=== PATIENT | female | born 1990 | race Caucasian/White ===

== ENCOUNTER → 2022-03-17 14:48 | Outpatient (CLI) | payer OTHER, SELFPAY ==
--- NOTE | 2022-03-17 14:55 | DI.US.S_ITS ---
PROCEDURE: US OB >= 14 WEEKS FETUS INDICATIONS: 20 WEEK ANATOMY SCAN OUTSIDE/PRIOR DATING DATA: Last menstrual period (LMP): 10/26/2021. LMP-based estimated date of delivery (NISH): 08/02/2022. First dating scan (date and location): 03/17/2022. Estimated date of delivery (NISH) from first dating scan: 08/04/2022 TECHNIQUE: Real-time scanning was performed of the fetus, with image documentation and biometric measurements. COMPARISON: None. General: A single living intrauterine gestation is present. Presentation: Cephalic. Placenta: Placental position is anterior , without previa. Amniotic fluid index: 11.4 cm, normal range is 5-24 cm. Single deepest vertical pocket is 3.3 cm. heart rate: 140 beats per minute. Maternal cervical canal: 2.9 cm long. Normal lower limit is 2.5 cm. 1.6 x 1.7 uterine fibroid noted biometrics: Biparietal diameter: 4.5 cm, 19 week 5 day Head circumference: 16.8 cm, 19 week 3 day Abdominal circumference: 14 cm, 19 week 2 day Femur length: 3.6 cm, 21 week 2 day Clinically estimated gestational age: 20 week 2 day Composite gestational age from present scan: 20 week 0 day Estimated weight and percentile: 334 g, 36th percentile Anatomic survey: Neuro: Ventricles are non-dilated at less than 10 mm. Cisterna magna is normal at 3-11 mm. Cerebellum is normal in size and morphology. Nuchal skin fold: Normal at less than 6 mm between 14-21 weeks gestational age. Face: Not well seen Spine: No evidence for spina bifida. Heart: Not well seen Diaphragm: Not well seen Stomach: Left-sided stomach is present. Kidneys: Not well seen Cord: Three-vessel cord visualized. Cord insertion not well seen Bladder: Normal in size. Extremities: Not well seen IMPRESSION: Single live intrauterine consistent with a 20 week 0 day gestation. anatomy is not well visualized due to maternal body habitus and position. Consider follow-up. Approved by: Merritt Lopez M.D. on 03/17/2022 at 17:38
== END ==
PROVIDERS: PCP Registered Nurse; Referring Provider Nurse Practitioner Obstetrics & Gynecology; Visit Provider Nurse Practitioner Obstetrics & Gynecology
DX: Z34.92 Encounter for supervision of normal pregnancy, unspecified, second trimester (principal); Z3A.20 20 weeks gestation of pregnancy
CPT/HCPCS: 76811

== ENCOUNTER → 2022-03-30 07:36 | Outpatient (CLI) | payer OTHER, SELFPAY ==
--- NOTE | 2022-03-30 | DI.US.S_ITS ---
PROCEDURE: US OB FOLLOW UP INDICATIONS: RE-EVALUATE OUTSIDE/PRIOR DATING DATA: Last menstrual period (LMP): 10/26/2021. LMP-based estimated date of delivery (NISH): 08/02/2022. First dating scan (date and location): 03/17/2022. Estimated date of delivery (NISH) from first dating scan: 08/04/2022. TECHNIQUE: Real-time scanning was performed of the fetus, with image documentation. Endovaginal scanning: Not performed COMPARISON: [facility], OB >= 14 WEEKS FETUS, 03/17/2022, 15:07. FINDINGS: A single living intrauterine gestation is present. Presentation: Vertex. Placenta: Placental position is anterior, without previa. Amniotic fluid index: 11.9 cm, normal range is 5-24 cm. Single deepest vertical pocket is 4.2 cm. heart rate: 133 beats per minute. Maternal cervical canal: 3.3 cm long. Normal lower limit is 2.5 cm. estimated gestational age: 21 weeks 6 days anatomy: Placental cord insertion, face, nose/lips, profile, heart, diaphragm, kidneys, lower extremities and feet are visualized and appear within normal limits. No definite abnormality of the upper extremities identified on the prior exam. IMPRESSION: 1. Single living intrauterine . 2. structures previously not well visualized are identified on this follow-up exam and appear within normal limits. This completes the anatomy survey. No anomalies detected at this time. Dictated by: Keith Carrillo M.D. on 03/30/2022 at 9:33 Approved by: Keith Carrillo M.D. on 03/30/2022 at 10:42
== END ==
PROVIDERS: PCP Registered Nurse; Referring Provider Nurse Practitioner Obstetrics & Gynecology; Visit Provider Nurse Practitioner Obstetrics & Gynecology
DX: Z36.2 Encounter for other antenatal screening follow-up (principal); Z3A.21 21 weeks gestation of pregnancy
CPT/HCPCS: 76816

== ENCOUNTER 2022-08-14 07:32 | Inpatient (IN) | payer OTHER, SELFPAY ==
[2022-08-14 07:55] VITALS: BP 110/70
[2022-08-14 10:06] LABS: Add Manual Diff / Slide Review NO; Basophils Absolute Auto 100 /uL (0-100); Basophils Percent Auto 0.5 % (0-2); Eosinophils Absolute Auto 100 /uL (0-450); Eosinophils Percent Auto 0.5 % (2-4); Hematocrit 33.8 % (36-46); Hemoglobin 11.4 g/dL (12.0-16.0); Lymphocytes Absolute Auto 1200 /uL (1100-4500); Lymphocytes Percent Auto 11.2 % (25-40); Mean Corpuscular HGB Conc 33.9 % (30-36); Mean Corpuscular Hemoglobin 29.3 PG (26-34); Mean Corpuscular Volume 86.5 fL (80-100); Monocytes Absolute Auto 700 /uL (0-900); Monocytes Percent Auto 6.9 % (3-14); Neutrophils Absolute Auto 8700 /uL (1500-7000); Neutrophils Percent Auto 80.9 % (50-75); Platelet Count 227 X10^3/uL (150-400); Red Cell Distribution Width 14.5 % (11.6-14.8); White Blood Cell Count 10.7 X10^3/uL (4.5-11.0)
[2022-08-14] MEDS: miSOPROStoL 100 MCG TABLET 50 MCG SL ×2 (10:26→14:29)
--- NOTE | 2022-08-14 13:32 | PM.OBHP.1 ---
OB HPI Date/Time Date of admission: 08/14/22 Date Patient Seen: 08/14/22 Time Patient Seen: 08:00 History of Present Condition Chief complaint: INDUCTION : 1 Para: 0 Estimated Date of Delivery: 08/02/22 Estimated Gestational Age (weeks): 41w5d Narrative: Lisa Ramirez is a 32 year old female at 41w5d here for a post-term induction. Has Olivo balloon still in place that was inserted in outpatient clinic last night 08/13/2022 at 1730. Feeling occasional, [id number] lower abdominal contractions. +FM. Denies LOF. Indications Indication for induction OB: post dates History of Present care: good care, initiated at week # (11) and number of visits (11) Dating criteria: LMP confirmed by 1st trimester US Ultrasounds: normal mid trimester US Obstetrical complications: none Medical complications: none Preadmission Labs Blood type: B (+) positive HCT: 34 Cell-free DNA: Declined Narrative: 2-hr GTT: 83, 136, 121 Prior (ies) History: none Evaluation Evaluation Baseline heart rate: 135 Variability: Moderate (11-25) monitor accelerations: Present Monitor Decelerations: Absent Uterine Contraction Intensity: Mild Status: Category l Dilation (cm): 2.5 Effacement (%): 70 Dilation: 1-2 cm Effacement: 60-70% station: -2 Position of cervix: posterior Consistency: firm Forte score: 4 PFSH Medical History (Updated 08/14/22 @ 19:13 by Ashly Davis CNM, IVETT) BMI 39.0-39.9,adult Supervision of normal in third trimester Family History (Updated 08/14/22 @ 13:57 by Ashly Davis CNM, IVETT) Father Hypertension Brother Diabetes mellitus Sister Thyroid disease Social History Smoking Status: Never smoker Meds Home Medications and Allergies Allergies Allergy/AdvReac Type Severity Reaction Status Date / Time Penicillins Allergy hives/vomit Verified 08/14/22 08:37 Review of Systems Review of Systems Narrative: All pertinent ROS reviewed and negative. See HPI. Constitutional Constitutional: Reports system reviewed and no additional complaints, except as documented OB Exam Vital signs Blood Pressure: 110/70 Pulse Rate: 104 Respiratory Rate: 14 Temperature: 96.1 F HENMT Head: normal to inspection Eyes General: appearance normal, both eyes and all related structures Resp Effort & Inspection: normal respiratory effort Auscultation: clear to auscultation bilaterally Cardio Rate: regular rate Rhythm: regular rhythm Heart Sounds: S1 normal and S2 normal Extremities Lower extremity: Yes normal to inspection DTR's: Rt Patellar: 2+ and Lt Patellar: 2+ GI Inspection: normal to inspection Palpation: Yes soft and Yes other (Gravid) External Female Exam: Yes normal external appearance Presentation: vertex Estimated Weight (lbs): 8 Amniotic Fluid: no fluid Objective Labs 08/14/22 08:10 Labs: Laboratory Results - last 24 hr 08/14/22 08/14/22 08:10 08:10 WBC 10.7 RBC 3.90 L Hgb 11.4 L Hct 33.8 L MCV 86.5 MCH 29.3 MCHC 33.9 RDW 14.5 Plt Count 227 Neut % (Auto) 80.9 H Lymph % (Auto) 11.2 L [place] % (Auto) 6.9 Eos % (Auto) 0.5 L Baso % (Auto) 0.5 Neut # (Auto) 8700 H Lymph # (Auto) 1200 [place] # (Auto) 700 Eos # (Auto) 100 Baso # (Auto) 100 Blood Type B Positive Antibody Screen Negative Assessment and Plan Assessment and Plan Assessment and Plan narrative: ASSESSMENT: 32 yo at 41w5d Early labor Intact membranes Pre- BMI 39 Cervical ripening with Olivo balloon Forte 4 FHR Cat 1 PLAN: Admit for cervical ripening and labor induction Insert IV Draw labs: ABO/Rh, CBC Olivo balloon removed with traction Give misoprostol 50 mg buccally every 4 hours x 24 hours Continuous EFM Reassess in 5-6 hours after 2nd dose of misoprostol Time Spent with Patient Total time spent with greater than 50% in coordination of care (as documented) at patient's floor/unit and/or counseling patient:: 15-24 minutes
[2022-08-14 14:10] VITALS: BP 110/70; PULSE 104; RESP 14; TEMP 35.6
--- NOTE | 2022-08-14 14:11 | PM.OBPNLAB ---
Date/Time Date Patient Seen: 08/14/22 Time Patient Seen: 13:30 Pain Control Pain control: tolerating well Comments: Lisa doing well so far. Contractions have increased in frequency and strength but still not consistent. No LOF. Baby still moving well. Has been out of bed trying different positions. Hoping to take a nap soon. VS: BP 136/84; HR 96; Temp 35.6C Pelvic Exam Dilation (cm): 2.5 Effacement (%): 70 station: -2 Amniotic membrane status: Intact Contractions Date/Time contractions began: early labor started with mcmanus bulb insertion 1800 08/14/22. Active labor not yet started. Contractions on admission: irregular Monitor mode: External Contraction pattern: Irregular (every 3-7 minutes then long periods without contractions) Contraction intensity: Mild Status status: Category l Heart Rate Baseline: 135 Monitor Accelerations: Present Monitor Decelerations: Absent Monitor Variability: Moderate Assessment and Plan Assessment: induction ongoing Comments: ASSESSMENT: 32 yo at 41w5d Early labor Cervical ripening with misoprostol Intact membranes Pre- BMI 39 FHR Cat 1 PLAN: Discussed cervical exam to determine if next misoprostol would be needed versus starting pitocin and r/b/a of each. Lisa declines exam at this time. Give 2nd misoprsotol dose when due. Reassess in 3-4 hours or sooner as needed.
--- NOTE | 2022-08-14 19:17 | PM.OBPNLAB ---
Date/Time Date Patient Seen: 08/14/22 Time Patient Seen: 19:00 Pain Control Pain control: tolerating well Comments: History of painful menstrual cramps; these contractions remind her of those Pelvic Exam Dilation (cm): 4 Effacement (%): 80 station: -1 Amniotic membrane status: Intact Comments: Forte score =8 Contractions Date/Time contractions began: Still in early labor Monitor mode: External Contraction pattern: Irregular (every 3-7 minutes then long periods without contractions) Contraction intensity: Mild Status status: Category l Heart Rate Baseline: 140 Monitor Accelerations: Present Monitor Decelerations: Variable (x1) Monitor Variability: Moderate Assessment and Plan Assessment: induction ongoing Comments: Assessment: at 40w5d GBS neg Rh positive FHR Cat 1 Induction for post dates Give 25 mcg misoprostol buccally Start pitocin in 2 hours Consider AROM tonight Anticipate
[2022-08-14] MEDS: miSOPROStoL 100 MCG TABLET 25 MCG SL (19:46)
[2022-08-14] MEDS: LACTATED RINGERS 1,000 ML 100 ML IV (22:00)
[2022-08-14] MEDS: OXYTOCIN PREMIX 30 UNIT/500 ML PLAST..BAG IV (22:42)
--- NOTE | 2022-08-15 00:20 | PM.OBPNLAB ---
Date/Time Date Patient Seen: 08/15/22 Time Patient Seen: 00:20 Pain Control Pain control: tolerating well Comments: Lisa was sleeping well, had a couple hours of sleep. Contractions were initially more intense shortly (11/28 for pain) after Pitocin was started. Now the contractions have slowed and she hasn't been feeling them too much. Would prefer to be checked in a couple hours. Per RN, Pitocin started about 1.5 hours ago at around 2245 on 08/14/22. VS: BP 121/78; HR 82; Temp 98.1F; O2 99% Pelvic Exam Dilation (cm): 4 Effacement (%): 80 station: -1 Amniotic membrane status: Intact Comments: previous exam Contractions Date/Time contractions began: Still early labor Monitor mode: External Contraction pattern: Regular (every 1-4 minutes ) Contraction intensity: Mild (was moderate/strong earlier) Status status: Category l Heart Rate Baseline: 135 Monitor Accelerations: Present Monitor Decelerations: Absent Monitor Variability: Moderate Assessment and Plan Assessment: induction ongoing Comments: ASSESSMENT: 32 yo at 41w5d Post-dates induction Early labor Pitocin at 4 mE/L Membranes intact GBS negative FHR Cat 1 PLAN: Discussed cervical exam now versus in 2-3 hours. Continue monitoring then reassess in 2-3 hours per Lisa's preference. Anticipate .
--- NOTE | 2022-08-15 04:28 | PM.OBPNLAB ---
Date/Time Date Patient Seen: 08/15/22 Time Patient Seen: 04:10 Pain Control Pain control: tolerating well Comments: Lisa has been out of bed on birthing ball and walking around in room. She says that the contraction pain has definitely increased and can no longer sleep. Is wondering about pain management options other than epidural. After exam, is open to AROM but wants to try to take warm shower or bath before to see if that helps. VS: BP 133/77; HR 87; RR 18; Temp 97.7F; 98% Pelvic Exam Dilation (cm): 5 Effacement (%): 80 station: -1 Amniotic membrane status: Intact Contractions Date/Time contractions began: Early labor but with intensifying contractions starting at 0300 Monitor mode: External Pitocin rate (mU/min): 14 Contraction pattern: Regular (every 2-3 minutes ) Contraction intensity: Mild (was moderate/strong earlier) Status status: Category l Heart Rate Baseline: 140 Monitor Accelerations: Present Monitor Decelerations: Absent Monitor Variability: Moderate Assessment and Plan Assessment: induction ongoing Comments: ASSESSMENT: 32 yo at 41w5d Post-dates induction Early labor Pitocin at 14 mE/L Membranes intact FHR Cat 1 PLAN: Discussed pain management techniques before and after AROM. Plan to try shower and tub then consider AROM when ready. Reassess PRN.
--- NOTE | 2022-08-15 06:41 | PM.OBPNLAB ---
Date/Time Date Patient Seen: 08/15/22 Time Patient Seen: 06:00 Pain Control Pain control: tolerating well Comments: Lisa now out of shower. Says that contractions were feeling minimal near the end of the shower and are now starting to pick back up. She is wondering if she should try nitrous for pain management now. Per RN, Pitocin was turned off while in the shower. Will plan to restart at 2 mU/min. VS: BP 133/65; HR 102; O2 97%; RR 16 Pelvic Exam Dilation (cm): 5 Effacement (%): 80 station: -1 Amniotic membrane status: Intact Comments: Previous exam - no indication to recheck Contractions Date/Time contractions began: Early labor still Monitor mode: External Pitocin rate (mU/min): 0 Contraction pattern: Irregular (every 2-6 minutes ) Contraction intensity: Mild (was moderate/strong earlier) Status status: Category l Heart Rate Baseline: 135 Monitor Accelerations: Present Monitor Decelerations: Absent Monitor Variability: Moderate Assessment and Plan Assessment: induction ongoing Comments: ASSESSMENT: 32 yo at 41w6d Post-dates induction Early labor Pitocin off while in shower due to error Membranes intact FHR Cat 1 PLAN: Set up nitrous oxide. Lisa to get into bath when desired. Recommend AROM but Lisa not interested at this time. Encouraged to nap if able. Restart Pitocin at 2 mU/min. Reassess PRN.
--- NOTE | 2022-08-15 09:51 | PM.OBPNLAB ---
Date/Time Date Patient Seen: 08/15/22 Time Patient Seen: 09:52 Pain Control Pain control: other (see below) Comments: Lisa recently got out of tub, which was initially helpful for pain, but has noticed definite increase in contraction strength since last Pitocin increase. Now leaning over bed with partner Alfred applying counter-pressure to her back with some relief. Slightly discouraged about progress after cervical exam. Would like an epidural now. Getting into shower now while waiting for anesthesiologist. Pelvic Exam Dilation (cm): 5.5 Effacement (%): 80 station: -1 Amniotic membrane status: Intact Contractions Date/Time contractions began: Early active labor starting at about 0945 today. Monitor mode: External Pitocin rate (mU/min): 12 Contraction pattern: Regular (every 2-3 minutes ) Contraction intensity: Strong/Firm Status status: Category l Heart Rate Baseline: 135 Monitor Accelerations: Present Monitor Decelerations: Absent Monitor Variability: Moderate Assessment and Plan Assessment: induction ongoing Comments: ASSESSMENT: 32 yo at 41w6d Post-dates induction Pitocin at 12 Membranes intact GBS negative FHR Cat 1 PLAN: Keep Pitocin at current dose for now to not increase pain level further. Epidural requested. Will re-evaluate for AROM after epidural.
--- NOTE | 2022-08-15 12:18 | PM.OBPNLAB ---
Date/Time Date Patient Seen: 08/15/22 Time Patient Seen: 11:45 Pain Control Pain control: tolerating well Comments: Lisa is much more comfortable now with epidural. Would like to rest for an hour or so before being checked again. PIV was dislodged during position changes right before epidural. Difficult IV start. Pelvic Exam Dilation (cm): 5.5 Effacement (%): 80 station: -1 Amniotic membrane status: Intact Comments: Previous exam. Additional exam not indicated at this time. Small amount of vaginal bleeding noted on pad. No other LOF. Contractions Date/Time contractions began: Early active labor starting at 0945 today 08/15/22. Monitor mode: External Contraction pattern: Regular (every 2-3 minutes ) Contraction intensity: Strong/Firm Status status: Category l Heart Rate Baseline: 145 Monitor Accelerations: Present Monitor Decelerations: Late (x 2 mild) and Variable (x 2 with kaycee to 90s) Monitor Variability: Moderate Comments: FHR returned to baseline with position changes and fluid bolus. Assessment and Plan Assessment: induction ongoing Comments: ASSESSMENT: 32 yo at 41w6d Post-dates induction Pitocin stopped d/t PIV being dislodged Epidural in place Membranes intact GBS negative FHR Cat 1 PLAN: Start pitocin at 12 once PIV reinserted. Cervical exam and potential AROM in 1-2 hours per Lisa's request. Reassess sooner PRN.
[2022-08-15] MEDS: FENT 2MCG/ML BUPIV 0.125% EPI 200 MCG/100 ML PLAST..BAG 11 MCG EPIDURAL (14:45)
[2022-08-15] MEDS: LACTATED RINGERS 1,000 ML 100 ML IV ×2 (16:46→20:30)
[2022-08-15] MEDS: TRANEXAMIC ACID 1,000 MG in SODIUM CHLORIDE 0.9% 100 ML 200 MG IV ×2 (16:46→19:56)
--- NOTE | 2022-08-15 17:07 | P.PCNOB_ITS ---
Events: Labor Induction (post-dates) Labor & Delivery Delivery date: 08/15/22 Intrapartal Events: None Cervical ripening method: per misoprostal protocol (Olivo balloon inserted outpatient) Induction method: per pitocin protocol Delivery augmentation: pitocin Delivery monitor: external FHT and external uterine Route of delivery: L&D Laceration Description: Perineal - 2nd Degree Delivery repair: vicryl Quantitative Blood Loss: 1,403 Anesthesia Type: Epidural Complications: PPH - QBL 1403 mL Narrative: Lisa found to be complete and at zero station during insertion of Olivo catheter after epidural placement. Labored down for 2 hours for passive descent. Lisa pushed well with support from CNMs, RNs, and partner Alfred. Warm compresses applied during pushing. FHR in 130s/140s with moderate variability and variable decels to 90s during pushes with good baseline recovery. Coached to push with smaller, quicker efforts at . Head delivered in OA position, restituted to ARNEL. Shoulders and body delivered quickly after head for at 1526. Tight nuchal x 1 noted and unwrapped. Baby girl Scar cried spontaneously and was placed on maternal abdomen for drying and stimulation. APGARs 8,9. Pitocin started at 300 mU/min for active management of third stage. Cord clamped by SNM and cut by FOB after delayed cord clamping. Cord blood co llected. Intact placenta with 3 vessel cord delivered [place] with gentle traction. Fundus massaged and was firm. Right and left sulcal laceratons and 2nd degree perineal laceration repaired with 3-0 vicryl. Attempted repair of smaller sections of bleeding, friable tissue and difficult to repair. TXA administered. Vaginal packing placed. QBL 1403 mL. Lisa's vital signs stable and states she is feeling well. Her and baby Sinanlee and left in room in stable condition. Plan to remove and reassess bleeding in one hour. [place] Baby 1: gender: Female Presentation: vertex Position: Left Occiput Anterior Placenta delivery description: Spontaneous Cord Vessel Description: 3 Vessels, Nuchal Cord (x1) and Tight score (1 min): 8 score (5 min): 9 Narrative: Baby not yet weighed during time of note. Plan for aftercare: Routine care
[2022-08-15 18:54] LABS: Hematocrit 28.8 % (36-46)
--- NOTE | 2022-08-15 19:31 | PM.OBPN.1 ---
Subjective - OB Subjective Patient comments: no complaints and pain well controlled [place] baby status: doing well [place] feeding status: exclusively breast feeding Narrative: Lisa feeling well. Not feeling lightheaded or dizzy. Pain well-managed as epidural still has effect. going well. Date Patient Seen: 08/15/22 Time Patient Seen: 19:15 Interval history: Saw Lisa to re-evaluate bleeding after vaginal packing left in place at introitus due to friable vaginal tissue unable to repair wtih suture. QBL at delivery 1403, approximately 400 mL from uterine bleeding, 1000 from vaginal laceration. Exam Vital Signs (past 8 hours): 1738: BP 116/64; HR 133; 1823: BP 106/69; HR 118 2001: BP 17/58; HR 130 Admission HCT 33; 1900 (post-delivery) HCT 28 Const General: healthy appearing HENMT Head: normal to inspection Resp Effort & Inspection: normal respiratory effort Cardio Rate: tachycardic Other: Brisk bleeding with removal of vaginal packing at 1915 Extrem General: normal to inspection and full ROM Psych Appearance: grossly normal Objective Labs 08/15/22 18:40 Labs: Laboratory Results - last 24 hr 08/15/22 18:40 Hgb 10.0 L Hct 28.8 L Assessment & Plan Assessment and Plan (1) hemorrhage: Status: Acute Assessment and plan: Delivery QBL 1403 + 100 (with vaginal packing removal) = total QBL 1503 (2) Vaginal delivery: Status: Acute Assessment and plan: NSVB with right & left sulcus lacerations and 2nd degree perineal laceration at 1526 Plan day: 0 plan OB: routine care and other Comments: Remove vaginal packing to assess bleeding. Pack vagina with packing roll containing surgicel (within roll - not against vaginal tissue) to help with hemostasis. Start LR 100 mL/hr for blood loss and tachycardia Insert Olivo catheter RN to check vaginal packing at 8 hours PP CNM to remove vaginal packing tomorrow morning Time Spent With Patient Time: Total time spent is greater than 50% in coordination of care (as documented) at patient's floor/unit and/or counseling patient: 25 minutes Time with patient: 15-24 minutes
[2022-08-15] MEDS: IBUPROFEN 600 MG TABLET PO (19:57)
[2022-08-15] MEDS: ACETAMINOPHEN 325 MG TABLET 975 MG PO (23:29)
[2022-08-16] MEDS: IBUPROFEN 600 MG TABLET PO ×3 (01:46→13:47)
[2022-08-16 08:46] LABS: Hematocrit 26.2 % (36-46); Hemoglobin 8.7 g/dL (12.0-16.0)
[2022-08-16] MEDS: ACETAMINOPHEN 325 MG TABLET 975 MG PO (09:30)
--- NOTE | 2022-08-16 10:08 | P.PNOB_ITS ---
Subjective - OB Subjective Patient comments: no complaints and pain well controlled [place] baby status: doing well and nursing well feeding status: exclusively breast feeding Narrative: Lisa doing well. Pain is manageable, mainly noticing in abdomen and perineum. Has not been out of bed yet but ready to do so. Date Patient Seen: 08/16/22 Time Patient Seen: 09:15 Interval history: CNM in room to remove vaginal packing and evaluate bleeding. PPH with QBL 1403 mLs after delivery with small, non-repairable vaginal lacerations contributing most of bleeding. Vaginal packing with gauze roll and Surgicel placed after delivery, about 12 hours ago. Exam Vital Signs (past 8 hours): BP 117/74; HR 84; RR 18; Temp 99.2F Narrative Exam Narrative: Denies lightheadedness or dizziness. Const General: healthy appearing HENMT Head: normal to inspection Eyes General: appearance normal, both eyes and all related structures Resp Effort & Inspection: normal respiratory effort Cardio Rate: regular rate GI Palpation: other Other: Gravid. Fundus firm, midline U/2. Other: Vaginal packing removed. Small amount of trickling bleeding noted right after removal. Skin General: no rashes or lesions noted Neuro General: patient alert, patient awake and patient oriented x3 Extrem General: normal to inspection Psych Appearance: grossly normal Mental Status: mental status grossly normal Mood: congruent mood Affect: normal affect Objective Labs 08/16/22 08:25 Labs: Laboratory Results - last 24 hr 08/15/22 08/16/22 18:40 08:25 Hgb 10.0 L 8.7 L Hct 28.8 L 26.2 L Assessment & Plan Assessment and Plan (1) hemorrhage: Start date: 08/15/22 Problem details: Friable vaginal tissue after delivery. Sutures in place. Packing x 2 hours did not solve oozing so packing left in place for 12 hours. bleeding now stable with Hct 26 today. Lisa able to get up and move around well and denies dizziness. VSS. Status: Acute Assessment and plan: Hct stable at 26 Dressing removed. Bleeding normal for . Olivo catheter removed. Lisa encouraged to get up and move around. Recommend iron BID x 6 weeks then recheck (2) Vaginal delivery: Start date: 08/15/22 Problem details: normal vaginal with 2nd degree laceration Status: Acute Assessment and plan: Normal care except as mentioned above. Plan day: 1 plan OB: routine care Comments: Vaginal packing removed. Fundus firm. Slow tricking bleeding noted. RN to reassess bleeding in 15 minutes. Lisa to get out of bed in 15 minutes. CNM to reassess bleeding before discharge. Time Spent With Patient Time: Total time spent is greater than 50% in coordination of care (as documented) at patient's floor/unit and/or counseling patient: 15 minutes Time with patient: 15-24 minutes
--- NOTE | 2022-08-16 10:26 | PM.OBDS.1 ---
Discharge Providers Provider Date of admission: 08/14/22 07:32 Discharge Date: 08/16/22 Primary care physician: IVETT Wong Consults: 08/16/22 18:08 Consult to Incident Analyst Routine Comment: Discharge provider: Ashly Davis CNM, ARNP Summary Hospital Course Date Patient Seen: 08/16/22 Time Patient Seen: 10:26 Diagnoses: Normal spontaneous vaginal delivery 2nd degree perineal laceration and bilateral sulcal lacerations with repair hemorrhage Hospital Course: Lisa arrived to hospital for induction for post-dates at 41w5d. Cervical ripening with Olivo balloon and oral misoprostol. Induction with pitocin. NSVB of healthy baby girl. PPH with QBL 1403 mL. Pitocin bolus and TXA givien. 2nd degree perineal laceration and bilateral sulcal lacerations repaired. Multiple small vaginal tears not able to be repaired but healed well with vaginal packing x 12 hours. Olivo catheter also in place for 12 hours with vaginal packing. Otherwise normal course. well. Peripartum Data Delivery Method: Natural Vaginal Laceration Description: Perineal - 2nd Degree, Vaginal - 1st Degree (multiple small tears) and Vaginal - 2nd Degree (bilateral sulcal lacerations) Procedures: Vaginal packing placed after delivery then removed at 12 hours . 1: Gender: Female Disposition of : home Discharge Diagnosis (1) hemorrhage: Start Date: 08/15/22 Start Time: 15:45 Status: Acute Problem Details: bleeding now stable (2) Vaginal delivery: Start Date: 08/15/22 Start Time: 15:26 Status: Acute Status at Discharge Cognitive/behavioral status at discharge: oriented Functional status at discharge: independent ambulation Overall status at discharge: patient is progressing back to baseline Time Spent with Patient Time attestation: Total time spent providing and/or coordinating discharge services: 25 minutes Objective Labs 08/16/22 08:25 Labs: Laboratory Results - last 24 hr 08/15/22 08/16/22 18:40 08:25 Hgb 10.0 L 8.7 L Hct 28.8 L 26.2 L Exam Vital Signs (past 8 hours): BP 117/74; HR 84; RR 18; Temp 99.2F Const General: healthy appearing and comfortable [facility] Head: normal to inspection Eyes General: appearance normal, both eyes and all related structures Neck Neck: full ROM Chest Chest: normal inspection of the chest Resp Effort & Inspection: normal respiratory effort Cardio Rate: regular rate GI Palpation: other Other: Gravid. Uterus firm, midline at U/2. Other: Lochia rubra, small. Skin General: no rashes or lesions noted Neuro General: patient alert, patient awake and patient oriented x3 Extrem General: normal to inspection and full ROM Psych Appearance: grossly normal Mental Status: mental status grossly normal Mood: congruent mood Affect: normal affect Discharge Plan Discharge Plan Patient Disposition: Home Provider Discharge Comment: Patient in stable condition. HCT 28. Asymptomatic of blood loss. Discharge orders & Medications Medication counseling provided by Pharmacist: No Follow up/Referrals: Ashly Davis, BRETT, SERVICE DELIVERY MANAGER [Advanced Deployment Specialist] - (Follow ups scheduled for 2 and 6 weeks for routine visits.) Torsten Pettit ARNP [Primary Care Provider] - Discharge Health Status Health Concerns: Anemia r/to PPH. Recommend iron supplementation BID x 6 weeks. Multidrug resistant organism: No MDRO Diet/Activity/Treatments Diet: Diet as Tolerated Skin/Wound/Dressing Care Report to your healthcare provider any signs of infection, such as:: chills, fever, increased pain, unusual drainage and unusual redness Visit Report/Discharge Packet Instructions: DI for Hemorrhage, DI for Vulvo-vaginal Tears, DI for Labor and Delivery, Vaginal , DI for Depression Stand Alone Forms: Patient Portal/API, Stroke Signs & Symptoms Discharge Data Primary Care Provider: Torsten Pettit Attending Provider: Jaqui Kumar
== END 2022-08-16 13:49 | disposition home or self-care (01) | DRG 806 ==
PROVIDERS: Advanced Practice Midwife; Admitting Provider Nurse Practitioner Obstetrics & Gynecology; PCP Registered Nurse; Referring Provider Nurse Practitioner Obstetrics & Gynecology; Visit Provider Nurse Practitioner Obstetrics & Gynecology
DX: O48.0 Post-term pregnancy (principal); O72.1 Other immediate postpartum hemorrhage; Z37.0 Single live birth; Z3A.41 41 weeks gestation of pregnancy; O70.1 Second degree perineal laceration during delivery
CPT/HCPCS: 36415; 59050; 59200; 85014; 85018; 85025; 86850; 86900; 86901; G0378; G0379; J2590

== ENCOUNTER → 2024-02-29 15:18 | Outpatient (CLI) | payer OTHER, SELFPAY ==
--- NOTE | 2024-02-29 15:19 | DI.US.S_ITS ---
PROCEDURE: US OB <= 14 WEEKS FETUS INDICATIONS: DATING OUTSIDE/PRIOR DATING DATA: Last menstrual period (LMP): 12/26/2023. LMP-based estimated date of delivery (NISH): 10/01/2024. First dating scan (date and location): Today. Estimated date of delivery (NISH) from first dating scan: 10/07/2024. TECHNIQUE: Real-time scanning was performed of the fetus and maternal pelvic organs, with image documentation. Endovaginal scanning was also performed to better visualize the fetus and maternal ovaries. COMPARISON: None. FINDINGS: Yolk sac is present. heart rate measures 175 beats per minute. Inger-rump length is 1.9 cm. Ultrasound age is 8 weeks and 3 days. The gestational sac appears to be in the fundus. Probable left corpus luteum cyst. Possible posterior uterine 8 mm perigestational bleed versus fibroid. Probable anterior perigestational bleed measuring 2.9 x 2.7 cm. IMPRESSION: Living intrauterine gestation at an ultrasound age of 8 weeks and 3 days. Possible perigestational hemorrhages. The posterior lesion could also be a fibroid. Dictated by: Himanshu Hair M.D. on 02/29/2024 at 17:43 Approved by: Himanshu Hair M.D. on 02/29/2024 at 17:45
== END ==
PROVIDERS: PCP Registered Nurse; Referring Provider Obstetrics & Gynecology; Visit Provider Obstetrics & Gynecology
DX: Z34.81 Encounter for supervision of other normal pregnancy, first trimester (principal); Z3A.08 8 weeks gestation of pregnancy
CPT/HCPCS: 76801; 76817

== ENCOUNTER → 2024-03-31 08:35 | Outpatient (CLI) | payer OTHER, SELFPAY ==
[2024-03-31 09:58] LABS: Add Manual Diff / Slide Review NO; Basophils Absolute Auto 0 /uL (0-100); Basophils Percent Auto 0.4 % (0-2); Eosinophils Absolute Auto 0 /uL (0-450); Eosinophils Percent Auto 0.3 % (2-4); Hematocrit 37.4 % (36-46); Hemoglobin 12.8 g/dL (12.0-16.0); Lymphocytes Absolute Auto 1300 /uL (1100-4500); Lymphocytes Percent Auto 12.8 % (25-40); Mean Corpuscular HGB Conc 34.3 % (30-36); Mean Corpuscular Hemoglobin 29.3 PG (26-34); Mean Corpuscular Volume 85.5 fL (80-100); Monocytes Absolute Auto 700 /uL (0-900); Monocytes Percent Auto 6.9 % (3-14); Neutrophils Absolute Auto 8300 /uL (1500-7000); Neutrophils Percent Auto 79.6 % (50-75); Platelet Count 252 X10^3/uL (150-400); Red Blood Cell Count 4.37 X10^6/uL (4.0-5.2); White Blood Cell Count 10.5 X10^3/uL (4.5-11.0)
[2024-03-31 10:17] LABS: Natera Collection Specimen Collected
[2024-03-31 10:45] LABS: Hemoglobin A1C% w Est Avg Glu 5.1 % (4.0-6.0)
[2024-03-31 11:11] LABS: Hepatitis B Surface Antigen NEGATIVE s/c (NEGATIVE); Rubella Antibody IgG 74.3 IU/mL (>15)
[2024-03-31 11:29] LABS: HIV 1 & 2 Ab/Ag 4th Gen Combo NEGATIVE (NEGATIVE); Hep C Virus Ab w/Reflex Quant NEGATIVE s/c (NEGATIVE)
[2024-03-31 12:18] LABS: Urine N gonorrhoeae NOT DETECTED
[2024-03-31 12:32] LABS: Urine Chlamydia NOT DETECTED
[2024-04-01 03:36] LABS: Varicella IgG Antibody Reactive (Non Reactive)
[2024-04-01 06:19] LABS: RPR Screen Non Reactive (Non Reactive)
== END ==
PROVIDERS: Referring Provider Obstetrics & Gynecology; Visit Provider Obstetrics & Gynecology
DX: Z11.3 Encounter for screening for infections with a predominantly sexual mode of transmission (principal); Z34.80 Encounter for supervision of other normal pregnancy, unspecified trimester; Z36.0 Encounter for antenatal screening for chromosomal anomalies; Z68.41 Body mass index [BMI] 40.0-44.9, adult; E66.01 Morbid (severe) obesity due to excess calories
CPT/HCPCS: 36415; 80055; 83036; 86787; 86803; 86850; 86900; 86901; 87389; 87491; 87591

== ENCOUNTER → 2024-04-27 15:20 | Outpatient (CLI) | payer OTHER, SELFPAY ==
[2024-05-02 20:08] LABS: AFP Value 21.4 ng/mL (.); Gest Age on Col Date 16.7 weeks (.); Gestational Age EDD (.); Insulin Dep Diabetes No (.); OSBR Risk 1IN 10000 (.); Results Report (.); Test Results *Screen Negative* (.)
== END ==
PROVIDERS: Referring Provider Obstetrics & Gynecology; Visit Provider Obstetrics & Gynecology
DX: Z36.0 Encounter for antenatal screening for chromosomal anomalies (principal)
CPT/HCPCS: 36415; 82105

== ENCOUNTER → 2024-07-05 07:46 | Outpatient (CLI) | payer OTHER, SELFPAY ==
[2024-07-05 09:20] LABS: Hematocrit 33.4 % (36-46); Hemoglobin 11.5 g/dL (12.0-16.0)
[2024-07-05 09:47] LABS: GTT (PREG) 1 Hour PP 50gm Dose 138 mg/dL (76-139)
== END ==
LOC: LAB 07:48
PROVIDERS: Referring Provider Obstetrics & Gynecology; Visit Provider Obstetrics & Gynecology
DX: Z34.82 Encounter for supervision of other normal pregnancy, second trimester (principal); Z3A.26 26 weeks gestation of pregnancy
CPT/HCPCS: 36415; 82950; 85014; 85018

== ENCOUNTER → 2024-09-13 08:53 | Outpatient (CLI) | payer OTHER, SELFPAY ==
[2024-09-14 08:28] LABS: Strep Grp B PCR NEG for Grp B Strep
== END ==
PROVIDERS: Visit Provider Obstetrics & Gynecology
DX: Z34.80 Encounter for supervision of other normal pregnancy, unspecified trimester (principal); Z3A.36 36 weeks gestation of pregnancy
CPT/HCPCS: 87653

== ENCOUNTER 2024-10-10 10:35 | Outpatient (CLI) | payer OTHER, SELFPAY | END 2024-10-10 11:25 | disposition home or self-care (01) | LOC: LABOR 11:53 → OB 10-11 12:59 | PROVIDERS: Referring Provider Obstetrics & Gynecology; Visit Provider Obstetrics & Gynecology | DX: O48.0 Post-term pregnancy (principal); Z3A.40 40 weeks gestation of pregnancy | CPT/HCPCS: 59025; G0378; G0379 ==

== ENCOUNTER 2024-10-17 10:52 | Outpatient (CLI) | payer OTHER, SELFPAY | END 2024-10-17 11:25 | disposition home or self-care (01) | LOC: LABOR 11:21 → OB 14:20 | PROVIDERS: Referring Provider Obstetrics & Gynecology; Visit Provider Obstetrics & Gynecology | DX: Z36.9 Encounter for antenatal screening, unspecified (principal) | CPT/HCPCS: 59025; G0378; G0379 ==

== ENCOUNTER 2024-10-19 19:31 | Inpatient (IN) | payer OTHER, SELFPAY ==
[2024-10-19 19:42] VITALS: BP 111/78
--- NOTE | 2024-10-19 21:20 | PM.OBHP.IH.1 ---
OB HPI Date/Time Date of admission: 10/19/24 Date Patient Seen: 10/20/24 Time Patient Seen: 07:30 History of Present Condition Chief complaint: IUP, 41+5 wks EGA for induction NISH Calculator Estimated Delivery Date Method Current WG Current Estimate 10/07/24 Ultrasound #1 41w 6d Other Estimates 10/01/24 LMP (Certain) 42w 5d Estimated Gestational Age (weeks): 41+5 : 2 Para: 1 care: good care Dating criteria OB: LMP confirmed by 1st trimester US Ultrasounds: normal 1st trimester US and normal mid trimester US Obstetrical complications: none Medical complications OB: none Indications Indication for induction OB: post dates Preadmission Labs Last OB Lab Results: Blood Type B Positive 10/19/24 20:20 Antibody Screen Negative 10/19/24 20:20 Hct 32.5 % (36-46) L 10/19/24 20:20 Hgb 11.4 g/dL (12.0-16.0) L 10/19/24 20:20 Hep Bs Antigen Negative s/c (NEGATIVE) 03/31/24 09:17 Hepatitis C Antibody Negative s/c (NEGATIVE) 03/31/24 09:17 Rubella Antibody 74.3 IU/mL (>15) 03/31/24 09:17 VZV IgG Antibody Reactive (Non Reactive) 03/31/24 09:17 Glucose 1 Hr 50 gm 138 mg/dL (76-139) 07/05/24 08:58 Hemoglobin A1c 5.1 % (4.0-6.0) 03/31/24 09:17 Group B Strep (PCR) Neg for grp b strep 09/13/24 08:53 -: Chlamydia screen: negative, Gonorrhea screen: negative and Urine: negative -: PAP smear: Normal Genetic Screens: Quad screen: Normal and Cell-free DNA: Normal External Labs -: Urine: negative Prior (ies) Past Pregnancies Del. Date GA/Weeks Labor Lgth Wt Sex Route Outcome Anesthesia Place Delv Breastfeed Preg Comp Name 08/15/22 42 5 7 lb 4 oz Female vaginal live - full term epidural 6mon [place] Delivery Date: 08/15/22 Last Updated by: Ghada Ernandez, MADAY Pt states she had some bleeding and small tears after deliver. it took awhile for them to stop my bleeding, but I don't think they classified it as a hemorrhage Hx # Term Pregnancies: 1 Hx # Pregnancies: 0 Number of Living Children: 1 Multiple births: 0 Spontaneous abortions: 0 Ectopic pregnancies: 0 Elective abortions: 0 Evaluation Evaluation Baseline heart rate: 135 Variability: Moderate (11-25) monitor accelerations: Present Monitor Decelerations: Absent Uterine Contraction Intensity: Mild Category of Tracing: Reactive Status: Category l Dilation (cm): 10 Effacement (%): 100 Dilation: >/=5 cm Effacement: >/=80% station: 0 Position of cervix: anterior Consistency: soft Forte score: 12 Comments: AROM 0714, clear fluid PFSH Medical History (Updated 08/22/24 @ 09:29 by Fredi Small MD) Vaginal delivery hemorrhage Supervision of normal in third trimester Family History (Updated 02/28/24 @ 09:04 by Ghada Ernandez RN) Father Stroke Hypertension Brother Diabetes mellitus Sister Thyroid disease Aunt Breast cancer Mother Celiac disease Social History marital status: details: : Alfred number of children: 1 household members: spouse lives independently: Yes housing: house pets and animals: Yes (1 dog) education level: college (Bachelors degree- psychology ) 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 ) current occupational exposures/hazards: No special lissy needs: No seatbelt use: always water heater temp set < 120 deg: Yes working smoke detector in home: Yes fire extinguisher in home: Yes carbon monox detector in home: Yes firearms in home: Yes firearms unloaded and locked: Yes do you feel safe at home: Yes Smoking Status: Never smoker second hand exposure: No alcohol intake: former (Occasionally socially pre-) substance use type: does not use during the past year weight has: remained stable well-balanced diet: daily or most days daily servings fruits/ve or more times/day caffeine: No eating out: rarely or never Type(s) of exercise: walking frequency: 5-6 times per week duration: 30-45 minutes/day Meds Home Medications and Allergies Home Medications Medication Instructions Recorded Confirmed Type [id number] 27 mg-folic pkg PO 02/28/24 10/17/24 History acid 800 mcg-dha 200 mg-lut.oral pack Allergies Allergy/AdvReac Type Severity Reaction Status Date / Time Penicillins Allergy hives/vomit Verified 10/19/24 21:07 gluten AdvReac Intermediate Verified 10/19/24 21:07 Review of Systems Review of Systems Narrative: Problem-specific ROS positives included in HPI OB Exam Vital signs Blood Pressure: 95/50 Pulse Rate: 72 Temperature: 97.0 F HENMT Head: normal to inspection, normocephalic and atraumatic Eyes General: appearance normal, both eyes and all related structures Resp Effort & Inspection: normal respiratory effort and able to speak in complete sentences Auscultation: clear to auscultation bilaterally Cardio Rate: regular rate Rhythm: regular rhythm Heart Sounds: S1 normal, S2 normal and no murmurs Extremities Lower extremity: Yes normal to inspection GI Inspection: normal to inspection Palpation: Yes soft and Yes no hepatosplenomegaly Uterus Location (Fundal Height): 38 Estimated Weight (lbs): 8 Objective Labs 10/19/24 20:20 Assessment and Plan Assessment and Plan Assessment and Plan narrative: ASSESSMENT 1. Intrauterine , 40 1+5 weeks gestational age 2. Post dates 3. GBS negative status PLAN 1. Admit for cervical ripening and delivery 2. See admission orders Time-Based Coding :: [TOTAL MINUTES] spent with patient and on the chart (including review of chart, obtaining history, exam, reviewing outside data, placing orders, documenting exam and treatment plan, and counseling patient) on [DATE].
[2024-10-19] MEDS: miSOPROStoL 25 MCG TABLET 50 MCG PO (21:25)
[2024-10-19 21:29] LABS: Add Manual Diff / Slide Review NO; Basophils Absolute Auto 0 /uL (0-100); Basophils Percent Auto 0.4 % (0-2); Eosinophils Absolute Auto 0 /uL (0-450); Eosinophils Percent Auto 0.4 % (2-4); Hematocrit 32.5 % (36-46); Hemoglobin 11.4 g/dL (12.0-16.0); Lymphocytes Absolute Auto 1500 /uL (1100-4500); Lymphocytes Percent Auto 13.7 % (25-40); Mean Corpuscular HGB Conc 35.1 % (30-36); Mean Corpuscular Hemoglobin 30.2 PG (26-34); Mean Corpuscular Volume 86.2 fL (80-100); Monocytes Absolute Auto 600 /uL (0-900); Monocytes Percent Auto 5.5 % (3-14); Neutrophils Absolute Auto 8500 /uL (1500-7000); Platelet Count 166 X10^3/uL (150-400); Red Blood Cell Count 3.77 X10^6/uL (4.0-5.2); White Blood Cell Count 10.7 X10^3/uL (4.5-11.0)
[2024-10-20] MEDS: miSOPROStoL 25 MCG TABLET 50 MCG PO (02:10)
[2024-10-20] MEDS: LACTATED RINGERS 1,000 ML 999 ML IV (04:25)
[2024-10-20] MEDS: LACTATED RINGERS 1,000 ML 125 ML IV (05:19)
--- NOTE | 2024-10-20 05:25 | PM.AN.REGBLK ---
[facility] <Luz Elena Farias CRNA - Last Filed: 10/21/24 09:37> Pre-procedure Procedure: Continuous Lumbar Epidural for L&D Attending OB provider: Fredi Small PMH/ROS narrative: , IOL for PD, BMI. Had epidural with previous that worked well for her. ROS negative. PSH/Anesthesia history narrative: Negative Exam narrative: Mall II, good neck ROM. Large neck circumference. ASA Class: III Labs: Hct 32.5 % (36-46) L 10/19/24 20:20 Plt Count 166 X10^3/uL (150-400) 10/19/24 20:20 Medications: Current Medications Generic Name Dose Route Start Last Admin Trade Name Freq PRN Reason Stop Dose Admin Carboprost Tromethamine 250 mcg 10/19/24 21:10 Carboprost 250 Mcg/Ml Ampul IM Q90M PRN Bleeding Diphenhydramine HCl 25 mg 10/20/24 05:23 Diphenhydramine 50 Mg/Ml Vial IV Q10M PRN Pruritis Ephedrine Sulfate 10 mg 10/20/24 05:23 Ephedrine 50 Mg/Ml Vial IV Q5M PRN Blood pressure decrease more than 20% of baseline. Fentanyl 50 mcg 10/19/24 21:17 Fentanyl 100 Mcg/2 Ml Inj IV Q1H PRN Pain, Moderate (4-6) Lactated Ringer's 1,000 mls @ 100 mls/hr 10/19/24 21:15 10/20/24 05:19 Lactated Ringers IV 10/20/24 07:14 125 mls/hr CONT JOHANA Administration Oxytocin/Lactated Ringer's 30 unit in 500 mls @ 200 mls/hr 10/19/24 21:10 Oxytocin Premix IV CONT PRN Bleeding Protocol Tranexamic Acid 1,000 mg/ 100 mls @ 600 mls/hr 10/19/24 21:10 Sodium Chloride IV NOW PRN Bleeding FENT 2MCG/ML BUPIV 0.125% EPI 200 mcg in 100 mls @ 12 mls/hr 10/20/24 05:30 Fentanyl/Bupiv/Ns 2mcg/Ml - 0.125% EPIDURAL CONT JOHANA Lidocaine HCl 20 ml 10/19/24 21:10 Lidocaine 1% 20 Ml INJ INTRA-OP PRN Post Delivery Methylergonovine Maleate 0.2 mg 10/19/24 21:10 Methylergonovine 0.2 Mg Tablet PO Q6HR PRN Heavy Bleeding Methylergonovine Maleate 0.2 mg 10/19/24 21:10 Methylergonovine 0.2 Mg/Ml Vial IM NOW PRN Bleeding Misoprostol 50 mcg 10/19/24 21:15 10/20/24 02:10 Misoprostol 25 Mcg Tablet PO 50 mcg Q4H JOHANA Administration Misoprostol 800 mcg 10/19/24 21:10 Misoprostol 200 Mcg Tablet FL NOW PRN Bleeding Misoprostol 400 mcg 10/19/24 21:10 Misoprostol 200 Mcg Tablet SL NOW PRN Bleeding Nalbuphine HCl 2.5 mg 10/20/24 05:23 Nalbuphine 20 Mg/Ml Ampul IV Q10M PRN Pruritis Naloxone HCl 0.2 mg 10/19/24 21:10 Naloxone 0.4 Mg/Ml Vial IV Q2MIN PRN Opiate Reversal Ondansetron HCl 4 mg 10/19/24 21:17 Ondansetron 4 Mg/2 Ml Inj IV Q4HR PRN Nausea And Vomiting Oxytocin 10 unit 10/19/24 21:10 Oxytocin 10 Unit/Ml Vial IM NOW PRN Bleeding Zolpidem Tartrate 5 mg 10/19/24 21:07 Zolpidem 5 Mg Tablet PO BEDTIME PRN Sleep Allergies: Allergies Allergy/AdvReac Type Severity Reaction Status Date / Time Penicillins Allergy hives/vomit Verified 10/19/24 21:07 gluten AdvReac Intermediate Verified 10/19/24 21:07 Procedure Insertion date: 10/20/24 Insertion time: 04:45 Prep/Local: 1% lidocaine (chlorhexidine skin prep, dry x 3 min) Interspace: L4-5 Patient position: sitting Needle: 17 gauge Tuohy Loss of resistance with: saline BANDAR at (cm): 9 Catheter placed at SKIN (cm): 15 Catheter in SPACE (cm): 6 Sensory level: T10 Insertion: No CSF, No Blood, No Paresthesia with insertion, No Paresthesia with injection and No Test dose reaction Initial Medications TEST DOSE time: 05:02 BOLUS DOSE time: 05:14 BOLUS DOSE (mL): 9 BOLUS DOSE med: other (pump solution) Infusion Initial rate (mL/hr): 12 Post-procedure Anesthesia date START: 10/20/24 Anesthesia time START: 04:45 <Jennifer Murphy CRNA - Last Filed: 10/20/24 11:36> Post-procedure Anesthesia date END: 10/20/24 Anesthesia time END: 08:58 Post-procedure Anesthesia Assessment: Yes CV function: HR/BP stable, Yes Resp function: RR/sat/airway adequate, Yes Post-op hydration adequate, Yes Pain control adequate, Yes Nausea & vomiting absent, Yes Temperature > 36 C, Yes Mental status appropriate and No Anesthesia complications
[2024-10-20 07:27] VITALS: BP 95/50; PULSE 72; TEMP 36.1
[2024-10-20] MEDS: OXYTOCIN PREMIX 30 UNIT/500 ML PLAST..BAG 200 UNIT IV (07:58)
[2024-10-20] MEDS: METHYLERGONOVINE 0.2 MG/ML VIAL IM (10:49)
[2024-10-20] MEDS: IBUPROFEN 600 MG TABLET PO ×3 (11:13→23:41)
[2024-10-20] MEDS: WITCH HAZEL/GLYCERIN PADS 1 EACH TOP (11:14)
[2024-10-20] MEDS: ACETAMINOPHEN 325 MG TABLET 650 MG PO ×3 (11:14→23:41)
[2024-10-20] MEDS: DERMOPLAST SPRAY 20% 60 ML 1 SPRAY TOP (11:14)
--- NOTE | 2024-10-20 13:10 | P.PCNOB_ITS ---
Labor & Delivery Delivery date: 10/20/24 Delivery Time: 08:58 Intrapartal Events: Hypotonic Dysfunction Cervical ripening method: per misoprostal protocol Induction method: none Delivery augmentation: rupture of membranes Delivery monitor: external FHT and external uterine Route of delivery: Episiotomy description: None L&D Laceration Description: Perineal - 2nd Degree Delivery repair: chromic Estimated blood loss (mL): 350 Anesthesia Type: Epidural Complications: None Narrative: Following a 34 minute 2nd stage, the patient delivered spontaneously over an intact perineum a viable female infant with a weight of 3843 g (8 lb 7.6 oz), and Apgars of 9/9. No shoulder dystocia or cord entanglement was encountered. Skin to skin contact initiated immediately following delivery and delayed cord clamping performed. Once the umbilical cord was doubly clamped and cut, specimen of cord blood was obtained for routine studies. The placenta was delivered with gentle cord traction and suprapubic countertraction. Intravenous Pitocin was administered immediately following delivery of the placenta and although the blood loss was markedly reduced, a single dose of Methergine 0.2 mg IM was required to affect adequate control of post delivery vaginal bleeding. The placenta was inspected and found to be intact with a centrally inserted three-vessel cord. Inspection of the perineum showed a second-degree perineal laceration which was closed in the usual manner with 2-0 chromic catgut. The delivery process was tolerated well by the both mother and with sponge, instrument, and sharps counts normal at the end of the delivery process. [place] Baby 1: gender: Female Presentation: vertex Position: Left Occiput Anterior Placenta delivery description: Spontaneous Cord Vessel Description: 3 Vessels score (1 min): 9 score (5 min): 9 weight: 8 lb 7.558 oz Plan for aftercare: Routine care
[2024-10-21 06:18] LABS: Add Manual Diff / Slide Review NO; Basophils Absolute Auto 100 /uL (0-100); Basophils Percent Auto 0.7 % (0-2); Eosinophils Absolute Auto 100 /uL (0-450); Eosinophils Percent Auto 0.6 % (2-4); Hematocrit 28.9 % (36-46); Hemoglobin 10.1 g/dL (12.0-16.0); Lymphocytes Absolute Auto 1800 /uL (1100-4500); Lymphocytes Percent Auto 14.2 % (25-40); Mean Corpuscular HGB Conc 35.1 % (30-36); Mean Corpuscular Hemoglobin 30.3 PG (26-34); Mean Corpuscular Volume 86.4 fL (80-100); Monocytes Absolute Auto 900 /uL (0-900); Monocytes Percent Auto 6.8 % (3-14); Neutrophils Absolute Auto 10100 /uL (1500-7000); Neutrophils Percent Auto 77.7 % (50-75); Platelet Count 134 X10^3/uL (150-400); Red Blood Cell Count 3.34 X10^6/uL (4.0-5.2); Red Cell Distribution Width 14.2 % (11.6-14.8)
--- NOTE | 2024-10-21 08:19 | P.DS_ITS ---
Discharge Providers Provider Date of admission: 10/19/24 19:31 Discharge Date: 10/21/24 Primary care physician: Doctor Keke MD Consults: 10/19/24 21:11 Consult to Anesthesiology Urgent Comment: Consulting Provider: Fredi Small Reason for consultation: Epidural Has provider been notified: No 10/21/24 09:30 Consult to Environmental Construction Engineer Routine Comment: Discharge provider: Jaimee Henderson MD Summary Hospital Course Hospital Course: Doing well PP, bleeding minimal. No uterine pain. Time Spent with Patient Time attestation: Total time spent providing and/or coordinating discharge services: Objective Labs 10/21/24 05:51 Labs: Laboratory Results - last 24 hr 10/21/24 05:51 WBC 13.0 H RBC 3.34 L Hgb 10.1 L Hct 28.9 L MCV 86.4 MCH 30.3 MCHC 35.1 RDW 14.2 Plt Count 134 L Neut % (Auto) 77.7 H Lymph % (Auto) 14.2 L [place] % (Auto) 6.8 Eos % (Auto) 0.6 L Baso % (Auto) 0.7 Neut # (Auto) 92359 H Lymph # (Auto) 1800 [place] # (Auto) 900 Eos # (Auto) 100 Baso # (Auto) 100 Discharge Plan Discharge Plan Patient Disposition: Home Discharge orders & Medications Prescriptions: Continued PNV 191-sald-qtllw-dha-lutein 27 mg iron-800 mcg-200 mg combo pack See Rx Instructions .ROUTE .COMPLEX Patient Comments: [employer] Baby and Me Brand. Has iron and folate Rx Instructions: Per MD order. Follow up/Referrals: Doctor Davies MD [Primary Care Provider] - Visit Report/Discharge Packet Stand Alone Forms: Patient Portal/API, Stroke Signs & Symptoms Discharge Data Primary Care Provider: Doctor Keke
[2024-10-21] MEDS: IBUPROFEN 600 MG TABLET PO (09:05)
[2024-10-21] MEDS: DOCUSATE 100 MG CAPSULE PO (09:06)
[2024-10-21] MEDS: ACETAMINOPHEN 325 MG TABLET 650 MG PO (09:06)
[2024-10-21] MEDS: WITCH HAZEL/GLYCERIN PADS 1 EACH TOP (09:09)
--- NOTE | 2024-10-21 10:38 | PM.OBDS.1 ---
Discharge Providers Provider Date of admission: 10/19/24 19:31 Discharge Date: 10/21/24 Primary care physician: Doctor Keke MD Consults: 10/19/24 21:11 Consult to Anesthesiology Urgent Comment: Consulting Provider: Fredi Small Reason for consultation: Epidural Has provider been notified: No 10/21/24 09:30 Consult to Sales Representative [employer] Routine Comment: Discharge provider: Fredi Small MD Summary Hospital Course Date Patient Seen: 10/21/24 Time Patient Seen: 10:39 Diagnoses: Intrauterine gestation, [place], 41+ 6 weeks gestational age, delivered by spontaneous vaginal GBS negative status Hospital Course: Lisa was admitted on the evening of 10/19/2024 for cervical ripening with oral misoprostol. She progressed spontaneously and overnight had an epidural inserted then delivered spontaneously at 0858 on the morning of 10/20/2024 a viable female infant with Apgars of 9 and 9 and a weight of 3 a 4 2 g (8 lb 7.6 oz). Following delivery she and her baby have both done exceptionally well with mother experiencing prompt return of bowel and bladder function, she is ambulating independently, tolerating a regular diet, and her pain is well-controlled with oral pain medications she will be discharged at this time home in an afebrile normotensive condition after counseling regarding precautionary symptoms, limitations of activity, medications, and plans for follow-up which will be in 6 weeks. No contraceptive planning needs at this time. Medications at discharge will include resumption of all pre admission medications and she will use [id number] Tylenol as well as ibuprofen for additional pain relief. Peripartum Data Delivery Method: Natural Vaginal Laceration Description: Perineal - 2nd Degree Episiotomy description: None Procedures: Continuous lumbar epidural anesthesia Spontaneous vaginal delivery with repair of second-degree perineal laceration complications: none [place] 1: Gender: Female Disposition of : home Status at Discharge Cognitive/behavioral status at discharge: oriented Functional status at discharge: independent ambulation Overall status at discharge: patient is progressing back to baseline Time Spent with Patient Time attestation: Total time spent providing and/or coordinating discharge services: Time spent: Less than 30 minutes Objective Labs 10/21/24 05:51 Labs: Laboratory Results - last 24 hr 10/21/24 05:51 WBC 13.0 H RBC 3.34 L Hgb 10.1 L Hct 28.9 L MCV 86.4 MCH 30.3 MCHC 35.1 RDW 14.2 Plt Count 134 L Neut % (Auto) 77.7 H Lymph % (Auto) 14.2 L [place] % (Auto) 6.8 Eos % (Auto) 0.6 L Baso % (Auto) 0.7 Neut # (Auto) 99689 H Lymph # (Auto) 1800 [place] # (Auto) 900 Eos # (Auto) 100 Baso # (Auto) 100 Exam Const General: cooperative and comfortable Nutritional Appearance: average body habitus Orientation: alert and oriented x3 HENMT Head: normal to inspection, atraumatic and abrasion Ears: hearing grossly normal bilaterally Face and sinus: face symmetric Eyes General: appearance normal, both eyes and all related structures Conjunctivae: conjunctivae normal Sclera: sclerae normal EOM: EOM intact bilaterally Neck Neck: normal visual inspection Resp Effort & Inspection: normal respiratory effort and able to speak in complete sentences GI Inspection: normal to inspection Palpation: soft, no hepatosplenomegaly and tender (Mild, diffuse postsurgical tenderness) External Female Exam: other (No significant bleeding noted) Extrem General: no calf tenderness Psych Appearance: grossly normal Mental Status: mental status grossly normal Speech and Movement: speech and movement normal Mood: congruent mood Affect: normal affect Attitude: cooperative Thought Process: normal Thought Content: normal Judgment: judgment good Discharge Plan Discharge Plan Patient Disposition: Home Provider Discharge Comment: Please review the written instructions you received when you were discharged from the hospital. Your follow-up appointment needs to be scheduled for 6 weeks after your delivery and I look forward to seeing you then. If however you have any issues, concerns, or questions, please contact me either through the office phone at [phone], or via the patient portal. Discharge orders & Medications Prescriptions: Continued PNV 262-glnt-exeza-dha-lutein 27 mg iron-800 mcg-200 mg combo pack See Rx Instructions .ROUTE .COMPLEX Patient Comments: [employer] Me Brand. Has iron and folate Rx Instructions: Per MD order. Follow up/Referrals: Miscellaneous,Doctor, [Primary Care Provider] - Fredi Small MD [Physician] - Discharge Health Status Multidrug resistant organism: No MDRO Diet/Activity/Treatments Diet: Diet as Tolerated Activity: As tolerated Other treatments: Vzgj-ecw-onctttj Tylenol and or ibuprofen should be used for pain relief. Ywpf-iyn-ehwukzc stool softeners and/or MiraLax should be used as needed for constipation. Skin/Wound/Dressing Care Report to your healthcare provider any signs of infection, such as:: chills, fever, increased pain, unusual drainage and unusual redness Dressing: N/A Visit Report/Discharge Packet Instructions: DI for Labor and Delivery, Vaginal , DI for and Nipple Soreness Stand Alone Forms: Discharge: Care Discharge Data Primary Care Provider: Miscellaneous,Doctor
== END 2024-10-21 12:35 | disposition home or self-care (01) | DRG 807 ==
PROVIDERS: Admitting Provider Obstetrics & Gynecology; Referring Provider Obstetrics & Gynecology; Visit Provider Obstetrics & Gynecology
DX: O48.0 Post-term pregnancy (principal); Z37.0 Single live birth; Z3A.41 41 weeks gestation of pregnancy; O70.1 Second degree perineal laceration during delivery
CPT/HCPCS: 36415; 59025; 59050; 59200; 85025; 86850; 86900; 86901; G0379; J2210; J2590